=== PATIENT | female | born 1970 | race Caucasian/White ===

== ENCOUNTER 2016-08-16 18:22 | Emergency (ER) | payer MEDICAID ==
[~2016-08-16] VITALS: Ht 160 cm; Wt 98.5 kg
[2016-08-16 18:50] VITALS: Ht 160 cm; Wt 98.5 kg
[2016-08-16] MEDS ORDERED: ACETAMINOPHEN 325 MG TAB PO STA (19:02)
[2016-08-16 19:51] LABS: ADD SCAN DIFF NO
[2016-08-16 20:01] LABS: BASOPHIL # 0.1 10^3/ul (0.0-0.1); BASOPHILS % 0.6 % (0.0-2.0); EOSINOPHILS # 0.2 10^3/ul (0.0-0.5); EOSINOPHILS % 1.7 % (0.0-7.0); HEMATOCRIT 39.9 % (37.0-47.0); HEMOGLOBIN 13.5 g/dl (12.0-16.0); MEAN CORPUSCULAR HGB CONC 33.8 g/dl (32.0-37.0); MEAN CORPUSCULAR VOLUME 82.6 fl (82.0-101.0); MEAN PLATELET VOLUME 10.7 fl (7.4-10.4); MONOCYTE # 0.6 10^3/ul (0.3-0.9); MONOCYTES % 5.1 % (0.0-11.0); NEUTROPHILS % 64.1 % (39.0-77.0); PLATELET COUNT 278 10^3/UL (140-415); RED BLOOD COUNT 4.83 10^6/ul (4.20-5.40); RED CELL DISTRIBUTION WIDTH 15.1 % (11.5-14.5); WHITE BLOOD COUNT 10.9 10^3/ul (4.8-10.8)
[2016-08-16 20:06] LABS: ADD UMIC YES; UR ASCORBIC ACID NEGATIVE (NEGATIVE); UR BACTERIA FEW /HPF (NONE SEEN); UR BILIRUBIN (Dip) NEGATIVE (NEGATIVE); UR BLOOD (Dip) 3+ mg/dL (NEGATIVE); UR CLARITY SLIGHTLY CLOUDY (CLEAR); UR COLOR YELLOW (YELLOW); UR GLUCOSE (Dip) NEGATIVE (NEGATIVE); UR KETONES (Dip) NEGATIVE (NEGATIVE); UR LEUKOCYTE ESTERASE (Dip) TRACE Leu/ul (NEGATIVE); UR MUCUS FEW /HPF (NONE SEEN); UR NITRITE (Dip) NEGATIVE (NEGATIVE); UR RBC 0 /HPF (0-5); UR SPECIFIC GRAVITY (Dip) 1.008 (1.003-1.030); UR SQUAMOUS EPITHELIAL CELL FEW /HPF (FEW); UR TOTAL PROTEIN (Dip) NEGATIVE (NEGATIVE); UR UROBILINOGEN (Dip) NEGATIVE (NEGATIVE)
--- NOTE | 2016-08-16 20:11 | RADRPT ---
PROCEDURE: US Pelvis. CLINICAL INDICATION: Vaginal bleeding. Last menstrual period 06/14/2016 TECHNIQUE: Multiple sonographic images of the pelvis were obtained utilizing a transabdominal and endovaginal technique. The images were reviewed on a PACS workstation. COMPARISON: None. FINDINGS: The uterus measures 10.5 x 5.3 x 5.9 cm and is unremarkable. The thickness of the endometrium equals 1.6 cm at the upper limit of normal for a menstruating woman. The right ovary measures 3.5 x 1.7 x 1.9 cm and is unremarkable and contains a 1.4 cm follicle. The left ovary measures 3 x 1.7 x 1.8 cm and is unremarkable and contains a 1.4 cm follicle containing internal echoes. Color flow and spec tral analysis demonstrates normal arterial flow in the right ovary normal arterial and venous flow i n the left ovary. No adnexal mass or free intrapelvic fluid is seen. IMPRESSION: No abnormality seen. Please see above. RPTAT: HJES .Negrito Huang MD, Date Time Electronically viewed and signed by .Negrito Huang MD, on 08/16/2016 20:10 .S/
--- NOTE | 2016-08-16 20:17 | ERD ---
ER Documentation Chief Complaint Date/Time DATE: 08/16/16 TIME: 20:13 Chief Complaint vag bleed x 15 days, cramping. Sent to ED by clinic. HPI Patient is a 45-year-old female with no past medical history who presents to the ED with vaginal bleeding for the last 15 days on and off. She states that she did not get her menstrual cycle for 8 months however the last 15 days she has been using 4 pads a day. She states that the bleeding has decreased. She has mild pelvic cramps bilaterally. She states that she went to her clinic, unknown of the name of the clinic 4 days ago and states that she was sent here for ultrasound. She denies urinary symptoms. Denies back pain. Denies abdominal pain, nausea, vomiting or diarrhea. Denies headache or dizziness. Neck pain or neck stiffness. No other complaints. ROS All systems reviewed and are negative except as per history of present illness. Medications Home Meds Active Scripts Acetaminophen* (Tylophen*) 500 Mg Capsule, 1 CAP PO Q6H Y for PAIN AND OR ELEVATED TEMP, #20 CAP Prov:MELI ARRINGTON PA-C 08/16/16 Allergies Allergies: Coded Allergies: No Known Allergies (Verified Allergy, 01/07/12) PMhx/Soc History of Surgery: No Anesthesia Reaction: No Hx Neurological Disorder: No Hx Respiratory Disorders: No Hx Cardiac Disorders: No Hx Psychiatric Problems: No Hx Miscellaneous Medical Probl: No Hx Alcohol Use: No Hx Substance Use: No Hx Tobacco Use: No Smoking Status: Never smoker FmHx Family History: No coronary disease, No diabetes, No other Physical Exam Vitals Vital Signs Date Time Temp Pulse Resp B/P Pulse Ox O2 Delivery O2 Flow Rate FiO2 08/16/16 20:53 98.9 69 16 156/88 97 Room Air 08/16/16 18:50 98.9 100 18 183/83 97 Physical Exam GENERAL: Well-developed, well-nourished female. Appears in no acute distress. HEAD: Normocephalic, atraumatic. EYES: Pupils are equally reactive bilaterally. EOMs grossly intact. No conjunctival erythema. ENT: Moist mucous membranes. No uvula deviation. No kissing tonsils. No exudates. NECK: Supple. No lymphadenopathy or thyromegaly. No meningismus. negative kernig. negative brudinski. LUNG: Clear to auscultation bilaterally. No rhonchi, wheezing, rales or coarse breath sounds. HEART: Regular rate and rhythm. No murmurs, rubs or gallops. ABDOMEN: No scars, ecchymosis or rashes noted. Soft, nontender, and nondistended. Positive bowel sounds in all four quadrants. No rebound tenderness , no guarding. (-) McBurneys point tenderness. No CVA tenderness. No pelvic pain. BACK: No midline tenderness. Extremities: Equal pulses bilaterally. No peripheral clubbing, cyanosis or edema. No unilateral leg swelling. NEUROLOGIC: Alert and oriented. Moving all four extremities. 5/5 strength in all extremities. Normal speech. Steady gait. SKIN: Normal color. Warm and dry. No rashes or lesions. Capillary refill < 2 seconds Result Diagram: 08/16/16193408/16/161934 Results 24 hrs Laboratory Tests Test 08/16/16 19:35 White Blood Count 10.910^3/ul Red Blood Count 4.8310^6/ul Hemoglobin 13.5g/dl Hematocrit 39.9% Mean Corpuscular Volume 82.6fl Mean Corpuscular Hemoglobin 28.0pg Mean Corpuscular Hemoglobin Concent 33.8g/dl Red Cell Distribution Width 15.1% Platelet Count 89725^3/UL Mean Platelet Volume 10.7fl Neutrophils % 64.1% Lymphocytes % 28.0% Monocytes % 5.1% Eosinophils % 1.7% Basophils % 0.6% Nucleated Red Blood Cells % 0.0/100WBC Neutrophils # 7.010^3/ul Lymphocytes # 3.010^3/ul Monocytes # 0.610^3/ul Eosinophils # 0.210^3/ul Basophils # 0.110^3/ul Nucleated Red Blood Cells # 0.010^3/ul Urine Color YELLOW Urine Clarity SLIGHTLY CLOUDY Urine pH 7.0 Urine Specific [place] 1.008 Urine Ketones NEGATIVEmg/dL Urine Nitrite NEGATIVEmg/dL Urine Bilirubin NEGATIVEmg/dL Urine Urobilinogen NEGATIVEmg/dL Urine Leukocyte Esterase TRACELeu/ul Urine Microscopic RBC 0/HPF Urine Microscopic WBC 0/HPF Urine Squamous Epithelial Cells FEW/HPF Urine Bacteria FEW/HPF Urine Mucus FEW/HPF Urine Hemoglobin 3+mg/dL Urine Glucose NEGATIVEmg/dL Urine Total Protein NEGATIVEmg/dl Sodium Level 136mmol/L Potassium Level 3.8mmol/L Chloride Level 102mmol/L Carbon Dioxide Level 26mmol/L Anion Gap 12 Blood Urea Nitrogen 8mg/dl Creatinine 0.54mg/dl Glucose Level 147mg/dl Calcium Level 9.1mg/dl Current Medications Medications (Trade) Dose Ordered Sig/Anna Route PRN Reason Start Time Stop Time Status Last Admin Dose Admin Acetaminophen (Tylenol Tab) 650 mg ONCE STAT PO 08/16/16 19:02 08/16/16 19:04 DC 08/16/16 19:33 Procedures/MDM ER COURSE: I kept the patient and/or family informed of laboratory and diagnostic imaging results throughout the emergency room course. EKG, MONITORS, & DIAGNOSTIC IMAGING: [place] [id number] Radiology Main Line: [phone] DIAGNOSTIC IMAGING REPORT Patient: SAEED DELEON : 1970 Age: 45 Sex: F MR #: [id number] DOS: 08/16/16 1902 Ordering MD: MELI ARRINGTON PA-C Location: [facility] Room/Bed: PROCEDURE: US Pelvis. CLINICAL INDICATION: Vaginal bleeding. Last menstrual period 06/14/2016 TECHNIQUE: Multiple sonographic images of the pelvis were obtained utilizing a transabdominal and endovaginal technique. The images were reviewed on a PACS workstation. COMPARISON: None. FINDINGS: The uterus measures 10.5 x 5.3 x 5.9 cm and is unremarkable. The thickness of the endometrium equals 1.6 cm at the upper limit of normal for a menstruating woman. The right ovary measures 3.5 x 1.7 x 1.9 cm and is unremarkable and contains a 1.4 cm follicle. The left ovary measures 3 x 1.7 x 1.8 cm and is unremarkable and contains a 1.4 cm follicle containing internal echoes. Color flow and spectral analysis demonstrates normal arterial flow in the right ovary normal arterial and venous flow in the left ovary. No adnexal mass or free intrapelvic fluid is seen. IMPRESSION: No abnormality seen. Please see above. RPTAT: HJES .Negrito Huang MD, MD Date Time Electronically viewed and signed by .Negrito Huang MD, MD on 08/16/2016 20:10 .S/ CC: MELI ARRINGTON PA-C LAB INTERPRETATION: CBC showed no evidence of systemic infection or severe anemia. CMP showed no evidence of electrolyte abnormalities, severe acidosis, alkalosis, renal failure , or liver disease. Lipase showed no evidence of acute pancreatitis. UA showed trace leukocytes with noshow trace leukocytes with no nitrites, nitrites or hematuria. Urine test was negative. MEDICAL DECISION MAKING: This is a 45-year-old female who presents with vaginal bleeding 15 days. Vital signs were reviewed. Patient is afebrile. Patient is not hypoxic. Patient is not toxic or ill-appearing. Patient's ultrasound is read by radiologist is unremarkable. Patient does not show signs of anemia or severe infection. Low suspicion for ectopic , , molar , endometriosis, PID, cervicitis, septic . DISCHARGE: At this time, patient is stable for discharge and outpatient management with no new complaints during the ER course. Patient was sent home with Tylenol and a copy of imaging report. Patient will be discharged home with instructions to recheck for new or worsening symptoms such as fever, nausea, weakness, LOC and to follow up with primary care in the next 1-2 days. Patient was advised to return to the ER for any new or worsening symptoms. Plan was discussed and patient and/or family understands and agrees. Home instructions were given. Departure Diagnosis: Primary Impression: Vaginal bleeding Condition: Stable MELI ARRINGTON PA-C Aug 16, 2016 20:16
[2016-08-16 20:20] LABS: CALCIUM 9.1 mg/dl (8.4-10.2); CREATININE 0.54 mg/dl (0.44-1.00); POTASSIUM 3.8 mmol/L (3.5-5.1)
[2016-08-16] MEDS ORDERED: ACET500C5 PO (20:27)
[2016-08-16 20:53] VITALS: BP 156/88; PULSE 69; RESP 16; TEMP 98.9
== END 2016-08-16 20:54 | disposition home or self-care (01) ==
LOC: FTE 18:22
DX: N93.9 Abnormal uterine and vaginal bleeding, unspecified (principal); R10.2 Pelvic and perineal pain
CPT/HCPCS: 36415; 76830; 76856; 80048; 81001; 85025; Z7502; Z7610